=== PATIENT | male | born 1955 | race Caucasian/White ===

== ENCOUNTER 2017-03-24 21:54 | Emergency (ER) | payer OTHER ==
[~2017-03-24] VITALS: Ht 182.9 cm; Wt 91.0 kg
[2017-03-24 22:01] VITALS: Ht 182.9 cm; Wt 91.0 kg
[2017-03-24] MEDS ORDERED: BACI28.34 TOP (23:19)
[2017-03-24] MEDS ORDERED: DIPHTH/TET/ACEL PERTUSS (ADULT) 0.5 ML VIAL IM* ONE (23:30)
--- NOTE | 2017-04-01 22:18 | ERD ---
ER Documentation Chief Complaint Chief Complaint bib self, cc: laceration on forehead due to hit by door HPI Patient is a 61-year-old male presenting to the emergency department with complaints of laceration to his forehead after being hit by a door.He states he accidentally walked into the door. His tetanus is not up-to-date. His pain level is a 0 out of 10. He denies any nausea, vomiting, or other symptoms. States he woke up to the bathroom in the middle the night and accidentally walked into the door. Patient denies loss of consciousness. ROS All systems reviewed and are negative except as per history of present illness. Medications Home Meds Active Scripts Bacitracin* (Bacitracin Zinc Oint*) 28.35 Gm Oint, 1 APPLIC TOP BID, #1 TUB APPLI TO Prov:RAMAN TOMLIN PA-C 03/24/17 Allergies Allergies: Coded Allergies: No Known Allergy (Unverified , 07/30/13) PMhx/Soc Hx Cardiac Disorders: Yes (HTN) Hx Alcohol Use: Yes (OCCASSIONALLY) Hx Substance Use: No Hx Tobacco Use: No Physical Exam Physical Exam Const: Nontoxic, well-appearing male in no acute distress. Head: Atraumatic Eyes: Normal Conjunctiva Skin: Superficial laceration just superior to the left eye. No evidence of foreign body. No active bleeding currently. Ext: No cyanosis, or edema Neur: Awake and alert Psych: Normal Mood and Affect Results 24 hrs Current Medications Medications (Trade) Dose Ordered Sig/Agustin Route PRN Reason Start Time Stop Time Status Last Admin Dose Admin Diphtheria/ Tetanus/Acell Pertussis (Adacel) 0.5 ml ONCE ONCE IM* 03/24/17 23:30 03/24/17 23:31 DC 03/24/17 23:28 Procedures/MDM 61-year-old male presents emergency department for laceration to his forehead. Laceration Repair by me: Anesthesia: 1% lidocaine locally Location: Forehead Tendon/Joint/Nerves: No injury Foreign body: None detected after copious irrigation and exploration Technique: Simple Interrupted Sutures Complexity: No subcutaneous sutures/mucosal repair/ edge excision Post Closure Length: 2 cm Patient's bleeding was easily controlled in the department and there is no indication of anemia. No evidence of compartment syndrome, neurologic injury, vascular injury, open joint, tendon laceration, or foreign body. Patient is appropriate for outpatient follow up. 48 hour wound check. Scar minimization instructions given. Tetanus is updated. Departure Diagnosis: Primary Impression: Forehead laceration Condition: Fair Patient Instructions: Laceration, Face (Suture Or Tape) Additional Instructions: Return in 48 hours for wound recheck. Return in 7 days from today for suture removal. Call your primary care doctor TOMORROW for an appointment during the next 2-3 days.See the doctor sooner or return here if your condition worsens before your appointment time. RAMAN TOMLIN PA-C Apr 01, 2017 22:18
== END 2017-03-24 23:35 | disposition home or self-care (01) ==
LOC: FTE 21:54
DX: S01.81XA Laceration without foreign body of other part of head, initial encounter (principal); I10 Essential (primary) hypertension; W22.8XXA Striking against or struck by other objects, initial encounter; Y92.9 Unspecified place or not applicable; Z23 Encounter for immunization
CPT/HCPCS: 90471; 90715

== ENCOUNTER 2019-01-19 21:00 | Emergency (ER) | payer OTHER ==
[~2019-01-19] VITALS: Ht 190.5 cm; Wt 95.2 kg
[~2019-01-19 21:00] MED LIST: BACI28.34 TOP
[2019-01-19 21:06] VITALS: BP 167/89; PULSE 89; RESP 18; Ht 190.5 cm; Wt 95.2 kg
--- NOTE | 2019-01-19 21:30 | ERD ---
ER Documentation Chief Complaint Chief Complaint diarrhea started 4 days ago,denies abd pain/NV HPI Patient is a 63-year-old male who presents with some diarrhea. He states that on Sunday he believes he ate some bad salami which caused him to have some stomach pain which has now resolved. He has not had any fever or vomiting and has been eating normally now but continues to have some loose stools and states he is going back to work tomorrow so just wants to make sure he is okay to go back to work. He has no pain at this time. ROS All systems reviewed and are negative except as per history of present illness. Medications Home Meds Active Scripts Bacitracin* (Bacitracin Zinc Oint*) 28.35 Gm Oint, 1 APPLIC TOP BID, #1 TUB APPLI TO Prov:RAMAN TOMLIN PA-C 03/24/17 Allergies Allergies: Coded Allergies: No Known Allergy (Unverified , 07/30/13) PMhx/Soc Hx Cardiac Disorders: Yes (HTN) Hx Alcohol Use: Yes (OCCASSIONALLY) Hx Substance Use: No Hx Tobacco Use: No FmHx Family History: No diabetes Physical Exam Vitals Vital Signs Date Temp Pulse Resp B/P (MAP) Pulse Ox O2 O2 Flow FiO2 Time Delivery Rate 01/19/19 98.7 89 18 167/89 96 21:06 (115) Physical Exam INITIAL VITAL SIGNS: Reviewed by me GENERAL: Awake, alert and oriented x 4, well appearing, nontoxic, speaking in full sentences. No acute distress RESPIRATORY: Clear to auscultation bilaterally. Symmetric chest wall rise. No wheezing or rales. No accessory muscle use. CV: Regular rate and rhythm. No murmurs, rubs, or gallops. ABDOMEN: Soft, non-distended. Nontender. Negative [place]. Negative McBurneys point tenderness. No CVA tenderness bilaterally. No guarding. No rebound. Procedures/MDM 63-year-old male who likely had a viral stomach infection which has now resolved and just wants to make sure he is okay to go back to work. He is afebrile well- appearing. He has no tenderness to palpation throughout his abdomen. He is tolerating oral intake. He is got some loose stools but there is no dark or bloody stools. Patient counseled regarding my diagnostic impression and care plan. Prior to discharge all questions answered. Pt agrees with treatment plan and understands strict return precautions. Pt is instructed to follow up with primary care provider within 24-48 hours. Precautionary instructions provided including instructions to return to the ER if not improving or for any worsening or changing symptoms or concerns. Departure Diagnosis: Primary Impression: Diarrhea Condition: Stable Patient Instructions: Treating Diarrhea Additional Instructions: Call your primary care doctor TOMORROW for an appointment during the next 1-2 days.See the doctor sooner or return here if your condition worsens before your appointment time. ELEAZAR QUIÑONES PA-C Jan 19, 2019 21:30
== END 2019-01-19 21:48 | disposition home or self-care (01) ==
LOC: FTE 21:00
DX: R19.7 Diarrhea, unspecified (principal)
CPT/HCPCS: 99282